=== PATIENT | male | born 1970 | race Caucasian/White ===

== ENCOUNTER 2016-11-24 08:38 | Emergency (ER) | payer OTHER ==
[2016-11-24 08:48] VITALS: RESP 16; O2SAT 94
--- NOTE | 2016-11-24 10:48 | EDPHY ---
H & P Time Seen by Provider: 11/24/16 10:00 HPI/ROS: CHIEF COMPLAINT: Rectal pain HISTORY OF PRESENT ILLNESS: 46-year-old male presents to the emergency department by private vehicle complaining of rectal pain. Patient states over last few days he has had some pain and some swelling noted near the rectal opening. Patient has never had pain in this particular area before. He has what sounds to be a pilonidal cyst that requires drainage "1-2 times per week". He states that when he develops pain his will stick a needle in and drained some pus. He has had this for months. He has never had follow-up with general surgeon in the past for this. He felt feverish and chilled yesterday. He did not take any medication today. He states that he does not have a fever today. He denies any abdominal pain. He denies any problems with defecation. ROS: No abdominal pain. No urinary symptoms. No diarrhea. No blood in his stool. No reported trauma. Past Medical/Surgical History: Bipolar, orthopedic surgery Social History: Smoking Status: Current every day smoker Physical Exam: On examination the patient is afebrile. No apparent distress. His abdomen is soft and nontender. There is a small 1 cm in diameter very firm nodule noted superior to the rectum. It is tender to palpate. There is no fluctuance or drainage. There is no redness. No pilonidal cyst currently. No hemorrhoid noted at the rectal opening. No other perirectal abscess noted. Constitutional: Initial Vital Signs Temperature (C) 37 C 11/24/16 08:45 Heart Rate 94 11/24/16 08:45 Respiratory Rate 16 11/24/16 08:45 Blood Pressure 150/87 H 11/24/16 08:45 O2 Sat (%) 94 11/24/16 08:45 O2 Delivery Mode Room Air Allergies/Adverse Reactions: No Known Allergies Allergy (Verified 11/24/16 08:44) Home Medications: Medication Instructions Recorded Albuterol [Proventil Neb] 3 ml IH 03/03/13 Albuterol [Proventil Inhaler] 2 puffs IH BID PRN 03/04/13 Divalproex ER [Depakote ER 500 MG 1,500 mg PO HS 03/04/13 (RX)] Amoxicillin/Clavulanate Pot 875 mg PO BID #14 tab 11/24/16 [Augmentin 875 mg tab] GABAPENTIN 11/24/16 Zoloft 100mg (*) 11/24/16 oxyCODONE/APAP 5/325 [Percocet 1 - 2 tab PO Q4-6PRN PRN #15 tab 11/24/16 5/325] MDM/Departure - [facility] ED Course/Re-evaluation: 46-year-old male with a history of recurring what sounds to be a pilonidal cyst. He does not currently have this. He now has a very firm 1 cm size nodule just superior to the rectal opening. I explained to the patient that this could represent an early perirectal abscess. I offered incision and drainage. However the patient declined. Patient will soak the area in warm water several times today and tomorrow. He was given antibiotic, Augmentin, twice daily for 1 week. He was also referred to general surgeon regarding his ongoing pilonidal cyst. I encouraged the patient to return to the emergency department if he developed increased swelling, if he noticed further drainage, if he developed recurring fever, or if he felt worse in any way. Patient was comfortable with this plan. - Depart Disposition: Home, Routine, Self-Care Clinical Impression: Perirectal abscess Condition: Good Instructions: Rectal Abscess (ED) Additional Instructions: Warm soaks 10-15 min every 2-3 hours especially over the next 2-3 days. Ibuprofen 600mg every 8 hours for pain as directed. Percocet for severe pain as directed. Augmentin 875mg twice daily for 7 days. You should follow up with a surgeon to discuss your recurring rectal abscess. Try not to poke or incise the wound open on your own. Stand Alone Forms: Work Excuse Prescriptions: Amoxicillin/Clavulanate Pot [Augmentin 875 mg tab] 875 mg PO BID #14 tab oxyCODONE/APAP 5/325 [Percocet 5/325] 1 - 2 tab PO Q4-6PRN PRN #15 tab PRN Reason: For Moderate To Severe Pain Referrals: Farhana Helton MD [Medical Doctor] - 1-2 days without fail (General surgeon on -call)
[2016-11-24 11:13] VITALS: BP 143/86; PULSE 89; TEMP 98.4
== END 2016-11-24 11:11 | disposition home or self-care (01) ==
DX: K61.1 Rectal abscess (principal); F17.200 Nicotine dependence, unspecified, uncomplicated

== ENCOUNTER → 2017-06-30 | Outpatient (CLI) | payer OTHER | LOC: BMCIMAGING 09:59 | PROVIDERS: ATTEND Family Medicine | DX: S62.652D Nondisplaced fracture of middle phalanx of right middle finger, subsequent encounter for fracture with routine healing (principal) ==

== ENCOUNTER 2017-11-21 11:26 | Emergency (ER) | payer OTHER ==
[2017-11-21 11:37] VITALS: TEMP 98.2
--- NOTE | 2017-11-21 12:06 | CPEKG ---
Heart Rate: 87 RR Interval: 690 P-R Interval: 172 QRSD Interval: 84 QT Interval: 368 QTC Interval: 443 P [place]: 82 QRS [place]: 48 T Wave [place]: 55 EKG Severity - ABNORMAL ECG - EKG Impression: SINUS RHYTHM EKG Impression: RAA, CONSIDER BIATRIAL ABNORMALITIES Electronically Signed By: Keegan Vu 21-Nov-2017 14:14:20
--- NOTE | 2017-11-21 12:17 | EDPHY ---
General Narrative: CHIEF COMPLAINT: High blood pressure, anxiety, palpitations HISTORY OF PRESENT ILLNESS: Patient complains of 1 day history of high blood pressure, feeling anxious and palpitations. He has ongoing symptoms of this that wax and wane. Mild-to- moderate. No chest pain but does have some palpitations that he can feel and describes as "forceful." No exertional component to this. No shortness of breath. He measured his blood pressure with his father's home BP cuff. He obtain measurements of 165/107 and 158/98. He has no headache. He has no known diagnosis of hypertension. He has been very concerned about this and feels as though he is having an anxiety reaction to a contact his primary care physician and has an appointment on Friday morning, but they instructed him to present to the ED for further care. No other associated complaints or modifying factors. REVIEW OF SYSTEMS: Ten systems reviewed and are negative unless otherwise noted in the HPI PCP: Dr. Pedroza SPECIALISTS: None PAST MEDICAL HISTORY: Bipolar disorder, anxiety PAST SURGICAL HISTORY: No recent surgeries SOCIAL HISTORY: Daily smoker. Occasional alcohol use. Occasional marijuana use. 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 Airway patent Neck: Normal inspection, supple, non-tender Respiratory: Lungs are clear to auscultation Cardiovascular: Regular rate and rhythm. No murmur Gastrointestinal: Abdomen is soft and nontender Back: non-tender, no bony abnormalities Neurological: GCS 15. Cranial nerves 2-12 grossly intact. A&O, nonfocal, normal gait. Strength is symmetric. Skin: Grossly intact. no rash. Diaphoretic and clammy. no petechiae or purpura Extremities: Nontender, no pedal edema Psychiatric: Anxious. DIFFERENTIAL DIAGNOSES: Including but not limited to anxiety, palpitations, dehydration, ACS, PE MDM: 11:50 a.m. Intermittent palpitations and anxiety over the past 24 hr with reportedly elevated blood pressure at home. Patient does appear to be anxious and is diaphoretic. No chest pain at this time. No exertional chest pain. Vital signs are within normal limits. EKG and laboratory studies ordered. He is in no acute distress. 1:00 p.m. Laboratory studies unremarkable. Chest x-ray unremarkable. EKG unremarkable. I do feel this is more likely related to anxiety. He has no evidence of hypertensive urgency or emergency. He is asymptomatic and his blood pressure has been well within normal limits here. We discussed discharge home with follow up with primary care physician, and he already has an appointment on Friday morning for this. We discussed ED precautions for worsening of symptoms or any chest pain. He is comfortable this plan and discharged home stable condition. EKG interpretation: Dr. Vu SUPERVISION: Patient was independently examined, but I discussed the case with my secondary supervising physician Dr. Vu - Diagnostics Imaging Results: Imaging Impressions Chest X-Ray 11/21/17 11:56 Impression: Clear lungs. Negative portable chest. - History Smoking Status: Current every day smoker - Objective Vital Signs: Initial Vital Signs Temperature (C) 98.2 F 11/21/17 11:34 Heart Rate 96 11/21/17 11:34 Respiratory Rate 18 11/21/17 11:34 Blood Pressure 135/90 H 11/21/17 11:34 O2 Sat (%) 98 11/21/17 11:34 O2 Delivery Mode Room Air Allergies/Adverse Reactions: No Known Allergies Allergy (Verified 11/24/16 08:44) Home Medications: Medication Instructions Recorded Albuterol [Proventil Neb] 3 ml IH 03/03/13 Albuterol [Proventil Inhaler] 2 puffs IH BID PRN 03/04/13 Divalproex ER [Depakote ER 500 MG 1,500 mg PO HS 03/04/13 (RX)] GABAPENTIN 11/24/16 Zoloft 100mg (*) 11/24/16 hydrOXYzine HCL [Hydroxyzine HCl] 50 mg PO Q6-8PRN PRN #11 tablet 11/21/17 Laboratory Results: Laboratory Results 11/21/17 12:10 11/21/17 12:10 11/21/17 11/21/17 12:10 12:10 WBC 9.02 10^3/uL 10^3/uL (3.80-9.50) RBC 5.16 10^6/uL 10^6/uL (4.40-6.38) Hgb 15.3 g/dL g/dL (13.7-17.5) Hct 42.9 % % (40.0-51.0) MCV 83.1 fL fL (81.5-99.8) MCH 29.7 pg pg (27.9-34.1) MCHC 35.7 g/dL g/dL (32.4-36.7) RDW 13.4 % % (11.5-15.2) Plt Count 285 10^3/uL 10^3/uL (150-400) MPV 8.5 fL L fL (8.7-11.7) Neut % (Auto) 58.2 % % (39.3-74.2) Lymph % (Auto) 32.5 % % (15.0-45.0) [place] % (Auto) 7.0 % % (4.5-13.0) Eos % (Auto) 1.3 % % (0.6-7.6) Baso % (Auto) 0.7 % % (0.3-1.7) Nucleat RBC Rel Count 0.0 % % (0.0-0.2) Absolute Neuts (auto) 5.25 10^3/uL 10^3/uL (1.70-6.50) Absolute Lymphs (auto) 2.93 10^3/uL 10^3/uL (1.00-3.00) Absolute Monos (auto) 0.63 10^3/uL 10^3/uL (0.30-0.80) Absolute Eos (auto) 0.12 10^3/uL 10^3/uL (0.03-0.40) Absolute Basos (auto) 0.06 10^3/uL 10^3/uL (0.02-0.10) Absolute Nucleated RBC 0.00 10^3/uL 10^3/uL (0-0.01) Immature Gran % 0.3 % % (0.0-1.1) Immature Gran # 0.03 10^3/uL 10^3/uL (0.00-0.10) Sodium 141 mEq/L mEq/L (135-145) Potassium 3.8 mEq/L mEq/L (3.5-5.2) Chloride 108 mEq/L mEq/L (97-110) Carbon Dioxide 20 mEq/l L mEq/l (22-31) Anion Gap 13 mEq/L mEq/L (8-16) BUN 18 mg/dL mg/dL (7-23) Creatinine 0.9 mg/dL mg/dL (0.7-1.3) Estimated GFR > 60 Glucose 91 mg/dL mg/dL (70-100) Calcium 10.1 mg/dL mg/dL (8.5-10.4) Total Bilirubin 0.3 mg/dL mg/dL (0.1-1.4) Conjugated Bilirubin 0.2 mg/dL mg/dL (0.0-0.5) Unconjugated Bilirubin 0.1 mg/dL mg/dL (0.0-1.1) AST 21 IU/L IU/L (17-59) ALT 37 IU/L IU/L (21-72) Alkaline Phosphatase 41 IU/L IU/L (38-126) Troponin I < 0.012 ng/mL ng/mL (0.000-0.034) Total Protein 7.3 g/dL g/dL (6.3-8.2) Albumin 4.5 g/dL g/dL (3.5-5.0) Lipase 103 IU/L IU/L (23-300) Departure - Departure Disposition: Home, Routine, Self-Care Clinical Impression: Anxiety reaction, Heart palpitations Condition: Good Instructions: Heart Palpitations (ED), Anxiety (ED) Additional Instructions: 1. Medications as prescribed as needed 2. Keep your appointment with primary care physician on Friday morning 3. ED precautions as discussed Referrals: Irvin Pedroza MD [Primary Care Provider] - As per Instructions Stand Alone Forms: Work Excuse Prescriptions: hydrOXYzine HCL [Hydroxyzine HCl] 50 mg PO Q6-8PRN PRN #11 tablet PRN Reason: Anxiety
[2017-11-21 12:19] LABS: PLATELET COUNT 285 10^3/uL (150-400)
[2017-11-21 12:41] VITALS: BP 138/93; PULSE 87; RESP 16; O2SAT 95
== END 2017-11-21 13:37 | disposition home or self-care (01) ==
DX: F41.1 Generalized anxiety disorder (principal); R00.2 Palpitations; F17.200 Nicotine dependence, unspecified, uncomplicated

== ENCOUNTER → 2018-03-23 | Outpatient (CLI) | payer OTHER | LOC: BMCIMAGING 10:11 | PROVIDERS: ATTEND Emergency Medicine | DX: M25.571 Pain in right ankle and joints of right foot (principal); M77.31 Calcaneal spur, right foot ==